=== PATIENT | female | born 2000 | race African-American/Black ===

== ENCOUNTER 2023-01-31 21:54 | Emergency (ER) | payer SELFPAY ==
[~2023-01-31] VITALS: Ht 167.6 cm; Wt 66.0 kg
[2023-01-31 22:53] VITALS: O2SAT 100
[2023-01-31] MEDS ORDERED: KETOROLAC 15MG/ML VIAL IM ONE (23:45)
[2023-02-01] MEDS ORDERED: ACET-2708 MT (00:51)
[2023-02-01 01:14] LABS: CLARITY URINE CLEAR (CLEAR); COLOR URINE YELLOW (YELLOW); GLUCOSE URINE NEGATIVE (NEGATIVE); KETONES URINE TRACE (NEGATIVE); LEUKOCYTE ESTERASE URINE NEGATIVE (NEGATIVE); NITRITE URINE NEGATIVE (NEGATIVE); OCCULT BLOOD URINE NEGATIVE (NEGATIVE); PROTEIN URINE 1+ (NEGATIVE); SPECIFIC GRAVITY URINE 1.025 (1.005-1.030)
[2023-02-01 01:18] LABS: BACTERIA URINE NONE SEEN; RBC URINE 0-2 /hpf (0-2); SQUAMOUS EPITHELIAL CELL URINE NONE SEEN /lpf (RARE/1+); YEAST URINE NONE SEEN
[2023-02-01] MEDS ORDERED: KETOROLAC 15MG/ML VIAL IM NR (01:30)
[2023-02-01 01:39] VITALS: BP 128/78; PULSE 90; RESP 18; TEMP 98.9
== END 2023-02-01 01:40 | disposition home or self-care (01) ==
LOC: ER 21:54
DX: S01.511A Laceration without foreign body of lip, initial encounter (principal); M79.644 Pain in right finger(s); Y08.89XA Assault by other specified means, initial encounter; Y93.89 Activity, other specified; Y92.89 Other specified places as the place of occurrence of the external cause; Y99.8 Other external cause status
CPT/HCPCS: 81003; 73120; 99284; 81025; 29125; 96372; J1885; Z7610